=== PATIENT | female | born 1940 | race Caucasian/White ===

== ENCOUNTER 2023-11-18 13:23 | Emergency (ER) | payer MEDICARE, SELFPAY ==
[2023-11-18 13:36] VITALS: BP 119/70
--- NOTE | 2023-11-18 15:08 | ED.GENMED ---
History of Present Illness
<Tammy Cook PA-C - Last Filed: 11/18/23 18:03>
General
Chief Complaint: Fall
Source: patient and family
Exam Limitations: none
Time Seen by Provider: 11/18/23 15:05
Nursing documentation reviewed up to this point in time: agreed with
Travel History
Have you had any contact with someone who has COVID-19?: No
Do you have any symptoms of coronavirus? Fever > 100 degrees, chills, cough, shortness of breath, sore throat, loss of taste or smell, muscle aches, or headache?: No
History of Present Illness
History of Present Illness:
This is a 83-year-old female with past medical history of AL, diabetes who presents to the emergency department today after a fall that occurred a few hours ago. Patient states that she was walking in her home when she tripped and fell on her right
side, hitting her head. She endured right-sided rib pain, shoulder pain, however has no headache. Her grandson partially witnessed the fall. She states that she did not feel dizziness, lightheadedness, or chest pain prior to the fall, she denies
syncopal episodes. She currently has no dizziness, visual changes, nausea, vomiting. She denies shortness of breath. Patient was initially seen by [facility] clinic who diagnosed her with a fracture of her arm and they placed her in a arm
sling and arrange for appropriate follow-up. They sent her here to the emergency department to have a CT of her head to ensure no active bleed.
Past History
<Tammy Cook PA-C - Last Filed: 11/18/23 18:03>
Past History
ED Past Medical History: CAD, Cancer, NIDDM and Other (Meningioma)
ED Past Surgical History: Orthopedic and Other
Social History
Living: with family
Review of Systems
<Tammy Cook PA-C - Last Filed: 11/18/23 18:03>
Review of Systems
All Other Systems: ROS reviewed and negative except as documented in HPI and ROS
Phy Exam
<Tammy Cook PA-C - Last Filed: 11/18/23 18:03>
Physical Exam
Physical Exam:
General: Patient is well-appearing and in no acute distress
Skin: Skin is warm and dry with no rashes or lesions
HEENT: Head is normocephalic and atraumatic
Cardiac: There is significant tenderness palpation of the right lower chest wall, some soft tissue swelling overlying the lower rib. Regular rate and rhythm, no murmurs.
Pulm: Normal respiratory effort
Musculoskeletal: Patient has full range of motion of left upper extremity. Right upper extremity seen in sling from [facility] orthopedics today.
Neuro: Cranial nerves II through XII intact. No involuntary movements. [id number] testing intact, [id number] testing intact.
Course
<Tammy Cook PA-C - Last Filed: 11/18/23 18:03>
Orders/Labs/Results
Orders:
Orders
11/18/23 13:42
CT Head W/o Iv Contrast Urgent
Comment:
Reason For Exam: fall on blood thinners
11/18/23 15:19
CT Chest W/o Iv Contrast Urgent
Comment:
Reason For Exam: right rib pain following fall
11/18/23 15:45
CT Cervical Spine W/o Iv Contr Urgent
Comment:
Reason For Exam: fall with head strike
11/18/23 15:47
Oxycodone/Acetaminophen [Percocet 5/325] 1 tablet PO NOW STA
Vital Signs
Initial and Last Documented VS:
Initial Vital Signs
Temp Pulse Resp BP Pulse Ox
97.9 F 76 18 119/70 93
11/18/23 13:36 11/18/23 13:36 11/18/23 13:36 11/18/23 13:36 11/18/23 13:36
Last Documented Vital Signs
Temp Pulse Resp BP Pulse Ox
97.9 F 72 16 112/54 93
11/18/23 13:36 11/18/23 17:48 11/18/23 17:48 11/18/23 17:48 11/18/23 17:48
<Javon Sandoval MD - Last Filed: 11/18/23 17:29>
Orders/Labs/Results
Orders:
Orders
11/18/23 13:42
CT Head W/o Iv Contrast Urgent
Comment:
Reason For Exam: fall on blood thinners
11/18/23 15:19
CT Chest W/o Iv Contrast Urgent
Comment:
Reason For Exam: right rib pain following fall
11/18/23 15:45
CT Cervical Spine W/o Iv Contr Urgent
Comment:
Reason For Exam: fall with head strike
11/18/23 15:47
Oxycodone/Acetaminophen [Percocet 5/325] 1 tablet PO NOW STA
Vital Signs
Initial and Last Documented VS:
Initial Vital Signs
Temp Pulse Resp BP Pulse Ox
97.9 F 76 18 119/70 93
11/18/23 13:36 11/18/23 13:36 11/18/23 13:36 11/18/23 13:36 11/18/23 13:36
Last Documented Vital Signs
Temp Pulse Resp BP Pulse Ox
97.9 F 72 16 112/54 93
11/18/23 13:36 11/18/23 17:48 11/18/23 17:48 11/18/23 17:48 11/18/23 17:48
<Tammy Cook PA-C - Last Filed: 11/18/23 18:03>
MDM/Problems Addressed
Differential Diagnosis Includes:
ddx include rib fracture, pneumothorax, hemothorax, musculoskeletal strain/sprain
MDM/Problems Addressed:
rib pain
Chronic conditions affecting care: DM, HTN, CAD and Other (dementia)
Acute Exacerbation and/or Progression of Chronic Illness:
n/a
<Tammy Cook PA-C - Last Filed: 11/18/23 18:03>
*Pulse Oximetry
Patient hypoxic: no
*Critical Care Note
Total Time (30-74mins, 75-104mins- exclusive of procedures): Not Applicable
Data Reviewed
Review of Other/Old Records Reveals: Records (Reviewed previous records, patient was seen here back July for headache, no recent hospitalizations)
Prescriptions/Medications Considered But Not Given:
n/a
Further Testing Considered But Not Given:
n/a
<Tammy Cook PA-C - Last Filed: 11/18/23 18:03>
Patient Management
Escalation/DeEscalation of care consider admission/obs:
This is a 83-year-old female with past medical history of diabetes, CAD, dementia who is presenting emergency department today following a fall onto her right side from standing. She currently complains of rib pain. She does take Eliquis but she
is unsure exactly why. She was sent here from [facility] outpatient Ortho for CT of the head. CT scan of the head did not show any active bleeding. Her CT of the chest did not show any rib fracture, and her CT of the neck did not show any cervical
fracture. She is stable for discharge. She will follow-up with shoulder specialist at [facility] and her primary care provider.
ED Attending Note
<Tammy Cook PA-C - Last Filed: 11/18/23 18:03>
-
Portions of this chart may have been created with voice recognition software.� Occasional wrong word or��sound alike� substitutions may have occurred due to the inherent limitations of voice recognition software.
<Javon Sandoval MD - Last Filed: 11/18/23 17:29>
ED Attending Note
Patient seen and examined by attending physician: Yes
ED Attending Note:
HPI: 83-year-old female with a past medical history of very mild dementia, diabetes, CAD who presents to the emergency department accompanied by her grandson for evaluation after fall. Patient reports that this morning she was walking in her home
and tripped and fell onto her right side. She says that she landed on her right shoulder and injured her shoulder, right side of her ribs. She says she did hit her head. She did not lose consciousness. She was able to get up and has been
ambulatory since the fall. Her family took her to [facility] orthopedics to be seen for her shoulder injury. She had an x-ray that it showed a fracture of her right shoulder and clavicle per family report. She was placed in a sling and she was
referred to the emergency room to be assessed for her other injuries including her head trauma given that she is on Eliquis. She does complain of some pain in her right ribs. She complains of very mild headache. She denies any neck pain. She
denies any back pain. She denies any abdominal pain. She denies any nausea or vomiting. She denies any pain in her lower extremities.
ROS: Positive for shoulder pain, rib pain, headache; negative for neck pain, back pain, abdominal pain, nausea, vomiting, lower extremity pain, numbness or weakness of extremities
Physical exam:
General: Awake, alert, oriented x3; no acute distress
Head: Normocephalic, atraumatic
Eyes: Conjunctiva normal, EOMI, pupils equal round reactive to light bilaterally
Throat: Airway intact, handling secretions, tongue atraumatic
Neck: Trachea midline, no tenderness in the cervical spine
Back: No signs of trauma to the back or flank and no tenderness in the thoracic or lumbar spine
Lungs: Breathing comfortably no distress
Heart: Regular rate; mild tenderness right anterior lateral ribs anterior axillary line ribs 8�9 with small localized hematoma but no crepitus
Abd: Soft, non distended, nontender
Neuro: Cranial nerves grossly intact, speech fluid
Skin: no rash
Extremities: Patient is in a sling right upper extremity with tenderness over her humeral head and distal clavicle on the right; left upper extremity and her lower extremities are atraumatic and she allows for passive range of motion in all of these
extremities without discomfort; distal extremities are warm and well-perfused
Differential diagnosis: Head trauma�must rule out intracranial hemorrhage, cervical spine injury; rib pain�bruised ribs, rib fractures; less less likely hemothorax or pneumothorax based on clinical exam
Medical decision makin-year-old female presents for evaluation after trip and fall�landed on her right side injured her shoulder, ribs and struck her head. She is on Eliquis. Seen in prophy prior to arrival and diagnosed with a right humeral
fracture and clavicular fracture per family and was placed in a sling, referred to the emergency room for assessment of her other injuries. Vital signs here within normal limits. Exam as above. Plan to check CT head and cervical spine. Check CT
of the chest. Will treat patient's pain. Monitor closely reassess after the above.
Chronic conditions affecting care: N/A
Acute exacerbation or progression of chronic illness: N/A
History source: Patient, grandson
Data reviewed: N/A
Medications/testing considered: N/A
Social determinants of health: N/A
Discussion with other providers: N/A
UPDATE: CT of the head and cervical spine negative for any acute traumatic injuries. CT of the chest shows no clear rib fractures. No pneumothorax or hemothorax. Suspect she likely has bruised ribs as cause for her rib pain, headache could be
related to mild concussion or scalp contusion. Her vital signs have been stable remains awake and alert with a GCS of 15. I think she is stable for discharge proper follow-up with orthopedics for known shoulder injury. Patient and family
comfortable with this.
Discharge Plan
Departure
Patient Disposition: Home (Routine Discharge)
Date of Disposition: 11/18/23
Time of Disposition: 17:29
Patient with high blood pressure during this ER visit?: No
Condition: Good
Discharge Problem:
Fall from standing
Instructions: Getting Up From a Fall, Fall Prevention for Older Adults
Prescriptions:
No Action
atorvastatin 40 mg tablet
40 mg PO DAILY
glipizide 5 mg tablet extended release 24hr
5 mg PO DAILY
pantoprazole 20 mg tablet,delayed release (DR/EC)
20 mg PO DAILY
pantoprazole 20 mg tablet,delayed release (DR/EC)
20 mg PO DAILY
metformin 1,000 mg tablet
1,000 mg PO QPM
mirtazapine 15 mg tablet
15 mg PO HS
duloxetine 30 mg capsule,delayed release(DR/EC)
30 mg PO DAILY
Rx Instructions:
taken w/ 30mg = 90mg
duloxetine 60 mg capsule,delayed release(DR/EC)
60 mg PO DAILY
Rx Instructions:
taken w/ 30mg = 90mg
calcium carbonate-vitamin D3 [Calcium 500 + D (D3)] 500 mg-3.125 mcg (125 unit) Tablet
1 tab PO DAILY
magnesium oxide 500 mg Capsule
500 mg PO DAILY
Myrbetriq 50 mg tablet extended release 24 hr
50 mg PO DAILY
Eliquis 5 mg tablet
5 mg PO BID
biotin 1,000 mcg Tablet,Chewable
1,000 mcg PO DAILY
Linzess 72 mcg capsule
75 mcg PO DAILY
Referrals:
UNKNOWN - PT DOES,NOT KNOW [Family Provider] -
Activity Restrictions/Additional Instructions:
Please follow up with the shoulder specialist per instructions from Theresa.
As discussed, your CT scan of your head did not show any evidence for a bleed in your brain. Your CT of your chest did not show any evidence of rib fracture.
You can use Tylenol as needed for pain. You can take 325 mg-650 mg hayden 4-6 hours as needed. Please do not exceed 4 g per day.
Please follow up with your primary care provider.
Interventions
Interventions:
*Risk Screen - Suicide Last Done: 11/18/23 15:55
*General Assessment Last Done: 11/18/23 15:55
*Neglect/Abuse Screening Last Done: 11/18/23 18:01
ED- Fall Risk Assessment Last Done: 11/18/23 18:01
*ED COVID-19 Vaccine History Last Done: 11/18/23 15:55
*Nursing Disposition Last Done: 11/18/23 18:01
ED-Musculoskeletal Assessment Last Done: 11/18/23 15:13
ED- Neurological Assessment Last Done: 11/18/23 15:13
ED-Skin Assessment Last Done: 11/18/23 15:13
[2023-11-18] MEDS: PERCOCET 5/325 1 TABLET PO (15:52)
[2023-11-18 17:48] VITALS: BP 112/54
== END 2023-11-18 18:02 | disposition home or self-care (01) ==
LOC: EMR 13:23
PROVIDERS: EMERGENCY PHYSICIAN Emergency Medicine
DX: S09.90XA Unspecified injury of head, initial encounter (principal); S42.301A Unspecified fracture of shaft of humerus, right arm, initial encounter for closed fracture; S42.001A Fracture of unspecified part of right clavicle, initial encounter for closed fracture; R07.81 Pleurodynia; W01.0XXA Fall on same level from slipping, tripping and stumbling without subsequent striking against object, initial encounter; Y92.009 Unspecified place in unspecified non-institutional (private) residence as the place of occurrence of the external cause; F03.A0 Unspecified dementia, mild, without behavioral disturbance, psychotic disturbance, mood disturbance, and anxiety; E11.9 Type 2 diabetes mellitus without complications; I25.10 Atherosclerotic heart disease of native coronary artery without angina pectoris; D32.9 Benign neoplasm of meninges, unspecified; I25.2 Old myocardial infarction; Z85.3 Personal history of malignant neoplasm of breast; Z79.01 Long term (current) use of anticoagulants; Z79.84 Long term (current) use of oral hypoglycemic drugs; Z98.1 Arthrodesis status
CPT/HCPCS: 99284; 70450; 71250; 72125

== ENCOUNTER → 2024-09-08 13:30 | Outpatient (REF) | payer MEDICARE, SELFPAY | LOC: HWRAD 13:30 | PROVIDERS: ATTENDING PHYSICIAN Family Medicine | DX: D32.9 Benign neoplasm of meninges, unspecified (principal) | CPT/HCPCS: 70450 ==

== ENCOUNTER 2025-01-31 11:53 | Emergency (ER) | payer MEDICARE, SELFPAY ==
[2025-01-31 11:55] VITALS: BP 133/73
--- NOTE | 2025-01-31 13:40 | ED.GENMED ---
History of Present Illness
General
Chief Complaint: Headache
Source: patient
Time Seen by Provider: 01/31/25 13:25
History of Present Illness
History of Present Illness:
84-year-old female presents to the emergency room complaining of severe pain left neck. Patient states she was sitting when she felt a sudden onset of pain in her left neck which radiates down to her shoulder and up into her head. Patient denies
any focal weakness numbness or tingling. Denies any difficulty with vision or speech. Pain is worse with movement. Patient denies making any kind of movement that caused the pain. She was not reaching for anything.
Past History
Past History
ED Past Medical History: CAD, Cancer, NIDDM and Other (Meningioma)
ED Past Surgical History: Orthopedic and Other
Social History
Living: with family
Phy Exam
Physical Exam
Physical Exam:
General: Awake, Alert, Oriented X3. No acute distress.
Vitals: unremarkable
Head: Atraumatic
Eyes: Pupils equal, EOMI
Throat: Airway intact, no exudates
Neck: Trachea midline, significant tenderness palpation over the left paracervical muscles and left neck in general. Patient will not allow me to palpate the area for more than a brief second.
Lungs: Clear and equal b/l
Heart: Regular rate, no murmurs
Abd: Soft, Nontender, No pulsatile mass
Neuro: Cranial nerves intact, muscle strength equal bilaterally, cerebellar exam normal
Skin: Warm, dry, no rash
Extremities: pulses equal b/l, no edema
Course
Orders/Labs/Results
Orders:
Orders
01/31/25 13:35
CT Head W/o Iv Contrast Urgent
Comment:
Reason For Exam: headache
01/31/25 13:38
CT Neck Angio W/wo Iv Contrast Urgent
Comment:
Reason For Exam: sudden onset severe left neck/head pain
01/31/25 13:39
HYDROmorphone [Dilaudid] 0.25 mg IV NOW STA
01/31/25 14:15
Basic Metabolic Panel Urgent
Complete Blood Count/With Diff Urgent
Troponin I Urgent
01/31/25 15:07
Oxycodone [Roxicodone] 5 mg PO NOW STA
Abnormal Lab Results
01/31/25
14:15
RBC 4.03 L 10^6/uL
(4.20-5.40)
Hgb 11.6 L g/dL
(12.0-16.0)
Hct 35.4 L %
(37.0-47.0)
MCHC 32.8 L g/dL
(33.0-37.0)
RDW 17.4 H %
(11.5-14.5)
Absolute Neuts (auto) 6.8 H 10^3/uL
(1.4-6.5)
Absolute Monos (auto) 0.7 H 10^3/uL
(0.1-0.6)
Neutrophils % 75.5 H %
(42.2-75.2)
Lymphocytes % 15.3 L %
(20.5-51.1)
BUN 21 H mg/dl
(7-17)
Creatinine 0.5 L mg/dL
(0.6-1.0)
01/31/25 14:15
01/31/25 14:15
Vital Signs
Initial and Last Documented VS:
Initial Vital Signs
Temp Pulse Resp BP Pulse Ox
97.8 F 73 18 133/73 96
01/31/25 11:55 01/31/25 11:55 01/31/25 11:55 01/31/25 11:55 01/31/25 11:55
Last Documented Vital Signs
Temp Pulse Resp BP Pulse Ox
97.8 F 86 18 133/73 96
01/31/25 11:55 01/31/25 14:31 01/31/25 14:31 01/31/25 11:55 01/31/25 14:31
MDM/Problems Addressed
Differential Diagnosis Includes:
Cervical strain, torticollis, vascular issue such as dissection
MDM/Problems Addressed:
CT angio was negative. CT head negative. Exam consistent with a local process like spasm or torticollis. Will treat symptomatically.
*Radiology
Radiology exam reviewed: radiology read reviewed
*Pulse Oximetry
Patient hypoxic: no
*Critical Care Note
Total Time (30-74mins, 75-104mins- exclusive of procedures): Not Applicable
ED Attending Note
-
Portions of this chart may have been created with voice recognition software.� Occasional wrong word or��sound alike� substitutions may have occurred due to the inherent limitations of voice recognition software.
Discharge Plan
Departure
Patient Disposition: Home (Routine Discharge)
Date of Disposition: 01/31/25
Time of Disposition: 17:26
Patient with high blood pressure during this ER visit?: No
Condition: Good
Discharge Problem:
Acute torticollis
Instructions: Torticollis
Prescriptions:
New
cyclobenzaprine 10 mg tablet
10 mg PO BID PRN (Reason: neck spasm) Qty: 20 0RF
No Action
atorvastatin 40 mg tablet
40 mg PO DAILY
glipizide 5 mg tablet extended release 24hr
5 mg PO DAILY
pantoprazole 20 mg tablet,delayed release (DR/EC)
20 mg PO DAILY
pantoprazole 20 mg tablet,delayed release (DR/EC)
20 mg PO DAILY
metformin 1,000 mg tablet
1,000 mg PO QPM
mirtazapine 15 mg tablet
15 mg PO HS
duloxetine 30 mg capsule,delayed release(DR/EC)
30 mg PO DAILY
Rx Instructions:
taken w/ 30mg = 90mg
duloxetine 60 mg capsule,delayed release(DR/EC)
60 mg PO DAILY
Rx Instructions:
taken w/ 30mg = 90mg
calcium carbonate-vitamin D3 [Calcium 500 + D (D3)] 500 mg-3.125 mcg (125 unit) Tablet
1 tab PO DAILY
magnesium oxide 500 mg Capsule
500 mg PO DAILY
Myrbetriq 50 mg tablet extended release 24 hr
50 mg PO DAILY
Eliquis 5 mg tablet
5 mg PO BID
biotin 1,000 mcg Tablet,Chewable
1,000 mcg PO DAILY
Linzess 72 mcg capsule
75 mcg PO DAILY
Referrals:
Alexi Alex MD [Family Provider] -
Activity Restrictions/Additional Instructions:
I believe your neck pain is from muscle spasms in the left neck. You can use Tylenol every 6 hours for pain. I recommend using Salonpas or similar [id number] lidocaine patch once a day. He can also use a heating pad or hot pack on your
neck. I have sent a prescription for muscle relaxant, Flexeril also to help with the pain. This may make you sleepy so use it carefully.
Interventions
Interventions:
*Risk Screen - Suicide Last Done: 01/31/25 11:55
*General Assessment Last Done: 01/31/25 11:55
*Neglect/Abuse Screening Last Done: 01/31/25 12:58
*ED- Fall Risk Assessment Last Done: 01/31/25 12:58
*ED COVID-19 Vaccine History Last Done: 01/31/25 11:55
ED-Musculoskeletal Assessment Last Done: 01/31/25 12:57
ED- Neurological Assessment Last Done: 01/31/25 12:57
ED-Skin Assessment Last Done: 01/31/25 12:57
Discharge Date and Time
Print Language: CENTRAL AFRICAN
[2025-01-31] MEDS: DILAUDID 0.25 MG IV (14:15)
[2025-01-31 14:37] LABS: % Basophils 0.2 % (0-2); % Eosinophils 0.9 % (0-6); % Immature Granulocytes 0.2 % (0-0.5); % Lymphocytes 15.3 % (20.5-51.1); % Monocytes 7.9 % (1.7-9.3); % Neutrophils 75.5 % (42.2-75.2); Absolute Eosinophils 0.1 10^3/uL (0-0.7); Absolute Lymphocytes 1.4 10^3/uL (1.2-3.4); Absolute Monocytes 0.7 10^3/uL (0.1-0.6); Absolute Neutrophils 6.8 10^3/uL (1.4-6.5); Hematocrit 35.4 % (37.0-47.0); Hemoglobin 11.6 g/dL (12.0-16.0); Mean Corp Hgb Conc. 32.8 g/dL (33.0-37.0); Mean Corpuscular Hgb 28.8 pg (27.0-31.0); Mean Corpuscular Volume 87.8 fL (81.0-99.0); Nucleated Red Blood Cells % 0 %; Platelet Count 219 10^3/uL (130-400); Red Blood Cell Count 4.03 10^6/uL (4.20-5.40); Red Cell Dist. Width 17.4 % (11.5-14.5)
[2025-01-31 14:43] LABS: Blood Urea Nitrogen 21 mg/dl (7-17); Calcium 9.2 mg/dl (8.4-10.2); Carbon Dioxide 28 mmol/L (22-30); Chloride 105 mmol/L (98-107); Glucose 73 mg/dl (70-99); Potassium 4.2 mmol/L (3.5-5.1); Sodium 140 mmol/L (135-145); eGFR > 60.00
[2025-01-31 14:54] LABS: Troponin I < 0.012 ng/ml
[2025-01-31] MEDS: ROXICODONE 5 MG PO (15:11)
[2025-01-31 17:41] VITALS: BP 140/86
== END 2025-01-31 17:42 | disposition home or self-care (01) ==
LOC: EMR 11:53
PROVIDERS: EMERGENCY PHYSICIAN Emergency Medicine; FAMILY PHYSICIAN Family Medicine
DX: M43.6 Torticollis (principal)
CPT/HCPCS: 99285; 96374; 70450; 70498; 80048; 84484; 85025; Q9967